=== PATIENT | female | born 1965 | race Caucasian/White ===

== ENCOUNTER → 2017-02-23 | Outpatient (REF) | payer OTHER, MEDICAID ==
[~2017-02-23] MED LIST: COLD AND COUGH OR; LORA10TA2 PO; PERC5TAB12 PO; [UNRECOGNIZED DRUG - CODE] OR
== END ==
LOC: M LAB REF 12:49
PROVIDERS: ATTEND Specialist
DX: Z12.4 Encounter for screening for malignant neoplasm of cervix (principal)

== ENCOUNTER → 2017-03-03 | Outpatient (REF) | payer OTHER, MEDICAID ==
[2017-03-03 14:14] LABS: FOLATE 4.9 NG/ML; VITAMIN B12 LEVEL 436 PG/ML
[2017-03-19 14:13] LABS: ACETYLCHOLINE RCPTOR BINDING A < 0.03 nmol/L (0.00-0.24); ACETYLCHOLINE RCPTOR BLOCK AB 18 % (0-25); ACETYLCHOLINE RCPTOR MODULATIN <12 % (0-20); SJOGREN'S ANTI SS-A <0.2 AI (0.0-0.9); SJOGREN'S ANTI SS-B <0.2 AI (0.0-0.9); STRIATIONAL ANTIBODIES Negative (Neg:<1:40)
== END ==
LOC: M LABNEURO 12:25
PROVIDERS: ATTEND Psychiatry & Neurology Neurology
DX: R51 Headache (principal)

== ENCOUNTER → 2019-01-27 | Outpatient (CLI) | payer OTHER ==
[~2019-01-27] MED LIST changes: +LORA-243 PO; -LORA10TA2 PO
[2019-01-29 17:16] LABS: HPV HYBRID CAPTURE II Negative (Negative)
== END ==
LOC: M SMT 09:45
PROVIDERS: ATTEND Specialist
DX: Z12.9 Encounter for screening for malignant neoplasm, site unspecified (principal)

== ENCOUNTER 2019-03-28 00:18 | Emergency (ER) | payer OTHER ==
[~2019-03-28] VITALS: Ht 167.6 cm; Wt 86.4 kg
[2019-03-28] MEDS ORDERED: CLON1TAB8 (00:27)
[2019-03-28] MEDS ORDERED: NAPR-885 PO (01:36)
[2019-03-28 01:45] VITALS: BP 118/59
[2019-03-28] MEDS ORDERED: NAPROXEN 250 MG TAB PO ONE (01:45)
== END 2019-03-28 01:51 | disposition home or self-care (01) ==
LOC: M ED 00:18
DX: T24.012A Burn of unspecified degree of left thigh, initial encounter (principal); T24.011A Burn of unspecified degree of right thigh, initial encounter; Y92.89 Other specified places as the place of occurrence of the external cause; Y93.01 Activity, walking, marching and hiking; R51 Headache; G47.30 Sleep apnea, unspecified; Z79.899 Other long term (current) drug therapy

== ENCOUNTER → 2021-04-11 | Outpatient (REF) | payer OTHER ==
[~2021-04-11] MED LIST changes: +CLON1TAB8; +NAPR-885 PO
== END ==
LOC: M SFHCWAGY 13:23
PROVIDERS: ATTEND Specialist
DX: Z01.419 Encounter for gynecological examination (general) (routine) without abnormal findings (principal)

== ENCOUNTER → 2021-04-11 | Outpatient (CLI) | payer OTHER ==
--- NOTE | 2021-04-11 12:21 | REP ---
INDICATION: LAMONT SCR MAMMO Z12.31. COMPARISON: Multiple the latest 01/27/2019. There are no prior DBT images to review. TECHNIQUE: Digital screening mammography was carried out bilaterally in the CC and MLO projections using both 2D and 3D modalities and compared to the prior exams. By history, the patient has no complaints of a palpable breast abnormality or other significant breast complaints. FINDINGS: The breasts are unchanged in size and shape. Scattered dense heterogenous nodular fibroglandular elements are again seen bilaterally. In the right breast upper outer quadrant there is a easton density. No other suspicious features are seen in either breast. Benign calcifications are seen bilaterally. There is no skin thickening or nipple retraction. The Volpara volumetric breast density pattern is b. IMPRESSION: BIRADS/ACR category 0 mammogram. Right breast easton density seen as described above for which diagnostic digital magnified spot compression views are recommended in the CC and MLO projections along with diagnostic ultrasonography if indicated.. This patient's Tyrer-Cuzick lifetime breast cancer risk assessment score is 15.4%. This mammogram was interpreted with the aid of an FDA-approved computer-aided detection system. The patient states she had a clinical breast exam in March 2021. The patient letter being requested is M0. RECOMMENDATION: As above <Electronically signed by Elvin Chou > 04/11/21 [id number]
== END ==
LOC: M WHC 09:18
PROVIDERS: ATTEND Specialist
DX: Z12.31 Encounter for screening mammogram for malignant neoplasm of breast (principal); R92.1 Mammographic calcification found on diagnostic imaging of breast

== ENCOUNTER → 2021-05-09 | Outpatient (CLI) | payer OTHER ==
--- NOTE | 2021-05-09 13:58 | REP ---
INDICATION: DIAG R BREAST MAMMO/BERENICE DENSITY. COMPARISON: Multiple TECHNIQUE: Diagnostic digital magnified spot compression views of the right breast were obtained in the CC and MLO projections over the region of interest seen on the prior screening examination 04/11/2021 near the 11 o'clock position. In addition, diagnostic ultrasonography was obtained. FINDINGS: The focal area of increased density seen in the right breast near the 11 o'clock position persists on the diagnostic spot compression views. The margins remain partially obscured. Diagnostic ultrasonography of this region shows an anechoic 1.2 x 0.7 x 1.3 cm sized structure which is smoothly marginated and exhibits posterior wall enhancement and increased through transmission. Shear wave elastography was performed on this showing very low KPA values. IMPRESSION: BIRADS/ACR category 2 benign findings. There is a simple right breast cyst as described above.. The patient letter being requested is M1. RECOMMENDATION: Repeat screening mammography recommended 1 year (for women over 40). <Electronically signed by Elvin Chou > 05/09/21 [id number]
== END ==
LOC: M WHC 12:56
PROVIDERS: ATTEND Specialist
DX: R92.8 Other abnormal and inconclusive findings on diagnostic imaging of breast (principal)

== ENCOUNTER 2021-07-29 20:14 | Emergency (ER) | payer OTHER ==
[~2021-07-29] VITALS: Ht 167.6 cm; Wt 101.7 kg
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
[2021-07-29] MEDS ORDERED: ZOLO50TA PO (20:27)
--- NOTE | 2021-07-29 21:26 | REPVR ---
PROCEDURE INFORMATION: Exam: XR Soft Tissue Neck Exam date and time: 07/29/2021 8:52 PM Age: 56 years old Clinical indication: Other: Foreign object stuck TECHNIQUE: Imaging protocol: XR of the soft tissues of the neck. COMPARISON: No relevant prior studies available. FINDINGS: Airway: Normal. No abnormal narrowing. Soft tissues: Small calcific density demonstrated anterior to C4 may represent a radiopaque foreign body to be correlated clinically. Bones/joints: Degenerative spondylosis in the lower cervical spine with disc space narrowing at C5-C6 and C6-C7 with intervertebral osteophytes. IMPRESSION: 1. Small calcific density demonstrated anterior to C4 may represent a radiopaque foreign body to be correlated clinically. 2. Degenerative spondylosis. Electronically signed by: Chavo Stoner On 07/29/2021 21:25:42 PM
[2021-07-30] MEDS ORDERED: GLUCAGON INJ 1MG VIAL IV STA (05:24)
[2021-07-30] MEDS ORDERED: GI COCKTAIL 50ML BTL(HYOSCYAMINE/MAALOX/LIDOCAINE VISCOUS)(1:3:1) PO ONE (05:25)
[2021-07-30] MEDS ORDERED: HALOPERIDOL 5MG/ML VIAL (J1630 PER 1) IV ONE (05:50)
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
[2021-07-30] MEDS ORDERED: PROT1TAB2 PO (07:28)
[2021-07-30 08:15] VITALS: BP 132/78
== END 2021-07-30 08:17 | disposition home or self-care (01) ==
LOC: M ED 20:14
DX: S10.11XA Abrasion of throat, initial encounter (principal); X58.XXXA Exposure to other specified factors, initial encounter; Y92.89 Other specified places as the place of occurrence of the external cause; Z79.899 Other long term (current) drug therapy
CPT/HCPCS: 70360; 96374; 99283; J1610

== ENCOUNTER → 2021-08-22 | Outpatient (CLI) | payer OTHER ==
[~2021-08-22] MED LIST changes: +E-Z-GAS II EFFERVESCENT PACKET (SODIUM BICARB./CITRIC ACID/SIMETHICONE) As Ordered ONE; +E-Z-HD 98% w/w 340GM SUSP BTL As Ordered ONE; +E-Z-PAQUE 96% w/w SUSP 176GM BTL As Ordered ONE; +ISOVUE-370 76% 100ML VIAL As Ordered ONE; +PROT1TAB2 PO; +ZOLO50TA PO
--- NOTE | 2021-08-22 08:46 | REPVR ---
PROCEDURE INFORMATION: Exam: CT Neck With Contrast Exam date and time: 08/22/2021 8:16 AM Age: 56 years old Clinical indication: Other: Chronic laryngitis TECHNIQUE: Imaging protocol: Computed tomography images of the neck with contrast. Radiation optimization: All CT scans at this facility use at least one of these dose optimization techniques: automated exposure control; mA and/or kV adjustment per patient size (includes targeted exams where dose is matched to clinical indication); or iterative reconstruction. Contrast material: ISOVUE 370; Contrast volume: 75 ml; Contrast route: INTRAVENOUS (IV); COMPARISON: CR Soft Tissue Neck 07/29/2021 8:43 PM FINDINGS: Paranasal sinuses: Severe sphenoid sinus mucosal thickening, with mild chronic bony wall thickening. A 2.7 cm cyst/polyp is present in the inferior left maxillary sinus. Nasopharynx: Unremarkable. Oropharynx: Bilateral mild lingual tonsillar hypertrophy, greater on the right. Hypopharynx: Unremarkable. Larynx: Unremarkable. Normal epiglottis. Retropharyngeal space: Unremarkable. Submandibular/Parotid glands: Normal. Glands are normal in size. Thyroid: Normal. No enlarged or calcified nodules. Lymph nodes: Unremarkable. No lymphadenopathy. Trachea: Visualized trachea is unremarkable. Lungs: Unremarkable as visualized. Bones/joints: Moderate atlantodental osteoarthritis. C5-6 and C6-7 degenerative disc disease with moderate spondylosis. Soft tissues: Unremarkable. No significant soft tissue swelling. IMPRESSION: 1. Right predominant mild lingual tonsillar hypertrophy. Gastroesophageal reflux? 2. Incidental paranasal sinus mucosal disease as above, including right chronic sphenoid sinusitis. Electronically signed by: Austin Rosas On 08/22/2021 08:46:04 AM
--- NOTE | 2021-08-22 16:46 | REP ---
INDICATION: CHRONIC LARYNGITIS-CT APPT FIRST. COMPARISON: None. TECHNIQUE: This procedure was performed under the direct supervision of Dr. Donovan. Images were reviewed with Dr. Donovan. Liquid barium and gas producing granules were given in the erect position as well as liquid barium in the prone oblique positions in order to perform a double contrast esophagram examination. A combination of fluoroscopy, spot films and last image hold technology was utilized. 0.4 minutes of fluoro time was utilized for this procedure. FINDINGS: A single view PA chest x-ray is submitted as a clinical exercise specialist film. The superior mediastinal structures are midline. The heart size is within normal limits. The lungs are clear. The oral and pharyngeal stages of deglutition are unremarkable. 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 Esophageal transport is prompt and efficient and there is no esophagitis, stricture, mucosal ring, or hiatal hernia.There is gastroesophageal reflux demonstrated to the level of the thoracic inlet. IMPRESSION: 1. 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 2. There is gastroesophageal reflux demonstrated to the level of the thoracic inlet. <Electronically signed by Irwin Longo > 08/22/21 1638 <Electronically signed by Carlin Donovan > 08/22/21 1642
== END ==
LOC: M RAD 07:56
PROVIDERS: ATTEND Otolaryngology
DX: J37.0 Chronic laryngitis (principal); J34.89 Other specified disorders of nose and nasal sinuses; K21.9 Gastro-esophageal reflux disease without esophagitis; J32.3 Chronic sphenoidal sinusitis
CPT/HCPCS: 70491; 74220; Q9967

== ENCOUNTER → 2021-09-13 | Outpatient (CLI) | payer OTHER ==
[~2021-09-13] MED LIST changes: -E-Z-GAS II EFFERVESCENT PACKET (SODIUM BICARB./CITRIC ACID/SIMETHICONE) As Ordered ONE; -E-Z-HD 98% w/w 340GM SUSP BTL As Ordered ONE; -E-Z-PAQUE 96% w/w SUSP 176GM BTL As Ordered ONE; -ISOVUE-370 76% 100ML VIAL As Ordered ONE
== END ==
LOC: M RAD 13:30
PROVIDERS: ATTEND Otolaryngology
DX: J32.0 Chronic maxillary sinusitis (principal)

== ENCOUNTER → 2022-02-02 | Outpatient (CLI) | payer OTHER | LOC: M LABSMTC 10:51 | PROVIDERS: ATTEND Anesthesiology | DX: Z01.812 Encounter for preprocedural laboratory examination (principal); Z20.822 Contact with and (suspected) exposure to COVID-19 ==

== ENCOUNTER 2022-02-04 10:32 | Day surgery (SDC) | payer OTHER ==
[~2022-02-04] VITALS: Ht 167.6 cm; Wt 97.1 kg
[~2022-02-04 10:32] MED LIST changes: +NS 1,000 ML IV ONE
[2022-02-04] MEDS ORDERED: fentaNYL 100 MCG/2 ML INJECTION As Ordered ONE (12:17)
[2022-02-04] MEDS ORDERED: propofoL 500 MG/50 ML VIAL As Ordered ONE (12:20)
[2022-02-04] MEDS ORDERED: ONDANSETRON 4MG/2ML VIAL As Ordered ONE (12:31)
[2022-02-04] MEDS ORDERED: LIDOCAINE 2% 100MG/5ML SDV (FOR ANES.) As Ordered ONE (12:31)
[2022-02-04] MEDS ORDERED: propofoL 200 MG/20 ML VIAL As Ordered ONE (12:51)
[2022-02-04 13:53] VITALS: BP 158/70
== END 2022-02-04 13:54 | disposition home or self-care (01) ==
LOC: M OPP 10:32
PROVIDERS: ATTEND Internal Medicine Gastroenterology
DX: Z12.11 Encounter for screening for malignant neoplasm of colon (principal); K63.5 Polyp of colon; K63.89 Other specified diseases of intestine; K64.8 Other hemorrhoids; R93.3 Abnormal findings on diagnostic imaging of other parts of digestive tract; R13.14 Dysphagia, pharyngoesophageal phase; Z79.1 Long term (current) use of non-steroidal anti-inflammatories (NSAID); Z79.899 Other long term (current) drug therapy; Z87.891 Personal history of nicotine dependence
CPT/HCPCS: 43239; 43450; 45380; 45385; 88305; J2405; J3010

== ENCOUNTER 2023-04-26 04:55 | Emergency (ER) | payer OTHER ==
[~2023-04-26] VITALS: Ht 167.6 cm; Wt 102.3 kg
[~2023-04-26 04:55] MED LIST changes: -CLON1TAB8; +CLON1TAB8 PO; +FURO20TA2 PO; +HYDR50TA70 PO; -NS 1,000 ML IV ONE; +OMEP40CA5 PO; +PROP10TA56 PO
[2023-04-26] MEDS ORDERED: SUCR1ORA (05:05)
[2023-04-26] MEDS ORDERED: PANT40TA29 (05:05)
[2023-04-26] MEDS ORDERED: FAMOTIDINE 20MG/2ML VIAL IVP ONE (06:20)
[2023-04-26] MEDS ORDERED: LORazepam 2 MG/ML 1ML VIAL IV STA (06:20)
[2023-04-26] MEDS ORDERED: MAALOX 30 ML SUSP *UDC PO ONE (06:20)
[2023-04-26 06:59] LABS: CK-MB VALUE MASS < 1.0 NG/ML (<3.6); LIPASE 37 U/L (12-53)
[2023-04-26 07:02] LABS: ALBUMIN 3.4 G/DL (3.2-5.2); ALKALINE PHOSPHATASE 144 U/L (46-116); ALT/SGPT 22 U/L (7.0-40); AST/SGOT 18 U/L (<34); BILIRUBIN,DIRECT 0.1 MG/DL (<0.4); BILIRUBIN,TOTAL 0.3 MG/DL (0.3-1.2); BLOOD UREA NITROGEN 17 MG/DL (9-23); CALCIUM LEVEL 9.1 MG/DL (8.5-10.1); CARBON DIOXIDE LEVEL 27 MMOL/L (20-31); CHLORIDE LEVEL 109 MMOL/L (98-107); CREATININE FOR GFR 0.78 MG/DL (0.55-1.30); GLOMERULAR FILTRATION RATE > 60.0 (>51); GLUCOSE, FASTING 104 MG/DL (60-100); POTASSIUM SERUM 4.3 MMOL/L (3.5-5.1); SODIUM LEVEL 143 MMOL/L (136-145); TOTAL PROTEIN 6.4 G/DL (5.7-8.2)
[2023-04-26 07:07] LABS: BASO % 0.6 % (0.0-1.0); CPK CREATINE PHOSPHOKINASE 89 U/L (34-145); EOS # 0.2 10^3/uL (0.0-0.5); EOS % 3.2 % (0.0-3.0); HEMATOCRIT 41.4 % (36.0-47.0); HEMOGLOBIN 13.4 g/dl (12.0-15.5); LYMPH # 1.9 10^3/uL (1.5-5.0); LYMPH % 26.4 % (24.0-44.0); MB/CK RELATIVE INDEX 1.12 (< OR =4); MEAN CORPUSCULAR HEMOGLOBIN 27.9 pg (27.0-33.0); MEAN CORPUSCULAR HGB CONC 32.4 g/dl (32.0-36.5); MEAN CORPUSCULAR VOLUME 86.3 fl (80.0-96.0); MONO # 0.5 10^3/uL (0.0-0.8); MONO % 6.8 % (2.0-8.0); NEUTROPHILS # 4.5 10^3/uL (1.5-8.5); NEUTROPHILS % 62.7 % (36.0-66.0); PLATELET COUNT, AUTOMATED 198 10^3/uL (150-450); WHITE BLOOD COUNT 7.2 10^3/uL (4.0-10.0)
[2023-04-26 07:35] LABS: CK-MB VALUE MASS < 1.0 NG/ML (<3.6)
[2023-04-26 07:36] LABS: CPK CREATINE PHOSPHOKINASE 78 U/L (34-145); MB/CK RELATIVE INDEX 1.28 (< OR =4)
[2023-04-26 08:18] VITALS: BP 112/60; TEMP 97.2; O2SAT 96
== END 2023-04-26 08:30 | disposition home or self-care (01) ==
LOC: M ED 04:55
DX: F41.9 Anxiety disorder, unspecified (principal); K21.9 Gastro-esophageal reflux disease without esophagitis; Z79.899 Other long term (current) drug therapy
CPT/HCPCS: 71046; 80048; 80076; 82550; 82553; 83690; 85025; 93005; 93041; 94760; 96374; 96375; 99285; J2060; S0028

== ENCOUNTER → 2023-04-28 | Day surgery (SDC) | payer OTHER ==
[~2023-04-28] VITALS: Ht 167.6 cm; Wt 102.1 kg
[~2023-04-28] MED LIST changes: +NS 1,000 ML IV ONE; +PANT40TA29; +SUCR1ORA
[2023-04-28 13:20] VITALS: TEMP 97.3
[2023-04-28 13:42] VITALS: BP 108/73; O2SAT 95
== END | disposition home or self-care (01) ==
LOC: M OPP 11:51
PROVIDERS: ATTEND Internal Medicine Gastroenterology
DX: K29.70 Gastritis, unspecified, without bleeding (principal); R93.3 Abnormal findings on diagnostic imaging of other parts of digestive tract; Z79.1 Long term (current) use of non-steroidal anti-inflammatories (NSAID); Z79.52 Long term (current) use of systemic steroids; Z79.891 Long term (current) use of opiate analgesic; Z79.899 Other long term (current) drug therapy; Z88.1 Allergy status to other antibiotic agents

== ENCOUNTER → 2023-04-30 | Outpatient (REF) | payer OTHER ==
[~2023-04-30] MED LIST changes: -NS 1,000 ML IV ONE
== END ==
LOC: M SFHCWAGY 17:40
PROVIDERS: ATTEND Specialist
DX: Z12.4 Encounter for screening for malignant neoplasm of cervix (principal)

== ENCOUNTER → 2023-07-15 | Outpatient (REF) | LOC: M PLAIMG 14:26 | PROVIDERS: ATTEND Internal Medicine | DX: M47.816 Spondylosis without myelopathy or radiculopathy, lumbar region (principal); M54.9 Dorsalgia, unspecified ==

== ENCOUNTER → 2023-08-02 | Outpatient (CLI) | payer OTHER | LOC: M SLEEP 20:00 | PROVIDERS: ATTEND Physician Assistant | DX: R06.83 Snoring (principal) ==

== ENCOUNTER → 2023-11-10 | Outpatient (CLI) | payer OTHER | LOC: M RAD 07:59 | PROVIDERS: ATTEND Physician Assistant Medical | DX: R93.3 Abnormal findings on diagnostic imaging of other parts of digestive tract (principal); R11.0 Nausea; K80.20 Calculus of gallbladder without cholecystitis without obstruction; K76.0 Fatty (change of) liver, not elsewhere classified | CPT/HCPCS: 76705; 78227; A9537 ==

== ENCOUNTER → 2023-12-07 | Outpatient (CLI) | payer OTHER | LOC: M RAD 11:21 | PROVIDERS: ATTEND Physician Assistant | DX: I83.813 Varicose veins of bilateral lower extremities with pain (principal) ==

== ENCOUNTER → 2024-02-15 | Outpatient (REF) | payer OTHER | LOC: M SFHCDERM 17:21 | PROVIDERS: ATTEND Physician Assistant | DX: D22.9 Melanocytic nevi, unspecified (principal) ==

== ENCOUNTER → 2024-03-14 | Outpatient (REF) | payer OTHER | LOC: M SFHCDERM 17:40 | PROVIDERS: ATTEND Physician Assistant | DX: D23.5 Other benign neoplasm of skin of trunk (principal) ==

== ENCOUNTER → 2024-04-27 | Outpatient (REF) | payer OTHER ==
[2024-04-27 16:43] LABS: Trichomonas vaginalis (AMP) NOT DETECTED (NEGATIVE)
[2024-04-27 17:07] LABS: GC DNA AMPLIFICATION NEGATIVE (NEGATIVE)
== END ==
LOC: M SFHCWAGY 15:03
PROVIDERS: ATTEND Nurse Practitioner Family
DX: Z11.3 Encounter for screening for infections with a predominantly sexual mode of transmission (principal); N73.9 Female pelvic inflammatory disease, unspecified

== ENCOUNTER → 2024-04-27 | Outpatient (CLI) | payer OTHER ==
[2024-04-27 16:06] LABS: HEPATITIS B SURFACE ANTIGEN NEGATIVE (NEGATIVE)
[2024-04-27 16:19] LABS: HIV 1&2 SCREEN NEGATIVE (NEGATIVE)
[2024-04-27 16:27] LABS: HEPATITIS B CORE ANTIBODY IGM NEGATIVE (NEGATIVE); HEPATITIS C VIRUS ABY INDEX < 0.02 INDEX (<0.8)
== END ==
LOC: M PLALAB 14:21
PROVIDERS: ATTEND Nurse Practitioner Family
DX: Z11.3 Encounter for screening for infections with a predominantly sexual mode of transmission (principal)

== ENCOUNTER → 2024-07-04 | Outpatient (REF) | payer OTHER | LOC: M SFHCWAGY 12:37 | PROVIDERS: ATTEND Nurse Practitioner Family | DX: N73.9 Female pelvic inflammatory disease, unspecified (principal) ==

== ENCOUNTER → 2025-03-13 | Outpatient (CLI) | payer OTHER ==
[~2025-03-13] MED LIST changes: +DOCU100C16 PO; +FAMO1TAB11 PO; +FLUTISP; +GABA-1171 PO; +MAGN400T35 PO; -PANT40TA29; +PANT40TA29 PO; +POLY510P14; +POTA-226 PO; +PROP20TA72 PO; +VENTAER
[2025-03-13 19:03] LABS: ALT/SGPT 19.0 U/L (7.0-40); AST/SGOT 18.0 U/L (<34)
== END ==
LOC: M PLALAB 14:27
PROVIDERS: ATTEND Physician Assistant Medical
DX: K76.0 Fatty (change of) liver, not elsewhere classified (principal)

== ENCOUNTER 2025-03-21 08:13 | Day surgery (SDC) | payer OTHER ==
[~2025-03-21] VITALS: Ht 165.1 cm; Wt 106.6 kg
[2025-03-21] MEDS ORDERED: LIDOCAINE 2% 100 MG/5 ML SDV (FOR ANES.) As Ordered ONE (10:32)
[2025-03-21 10:50] VITALS: TEMP 97.5
[2025-03-21 11:05] VITALS: BP 116/57; O2SAT 100
== END 2025-03-21 11:09 | disposition home or self-care (01) ==
LOC: M OPP 08:13
PROVIDERS: ATTEND Internal Medicine Gastroenterology
DX: K64.8 Other hemorrhoids (principal); Z86.0100 Personal history of colon polyps, unspecified; G47.30 Sleep apnea, unspecified; Z79.51 Long term (current) use of inhaled steroids; Z79.899 Other long term (current) drug therapy; J45.909 Unspecified asthma, uncomplicated

== ENCOUNTER → 2025-04-04 | Outpatient (CLI) | payer OTHER | LOC: M RAD 10:08 | PROVIDERS: ATTEND Physician Assistant Medical | DX: K76.0 Fatty (change of) liver, not elsewhere classified (principal); Z90.49 Acquired absence of other specified parts of digestive tract ==

== ENCOUNTER → 2025-06-08 | Outpatient (REF) | payer OTHER | LOC: M SFHCDERM 17:15 | PROVIDERS: ATTEND Nurse Practitioner Family | DX: L43.8 Other lichen planus (principal) ==